=== PATIENT | female | born 1960 | race Caucasian/White ===

== ENCOUNTER → 2016-11-18 | Outpatient (CLI) | payer OTHER | END | disposition home or self-care (01) | LOC: RADMRIMAIN 14:37 | PROVIDERS: ATTEND Orthopaedic Surgery | DX: Z53.9 Procedure and treatment not carried out, unspecified reason (principal) ==

== ENCOUNTER → 2017-04-17 | Outpatient (CLI) | payer OTHER ==
[2017-04-17 15:32] LABS: Basophils # (A) 0.1 k/uL (0-0.2); Basophils % (A) 1 %; CH 29.4; CHCM 35.3; Eosinophils # (A) 0.2 k/uL (0-0.7); Eosinophils % (A) 3 %; HCT 43.2 % (34.0-46.0); HDW 3.17; HGB 14.9 gm/dL (11.4-16.0); Luc # (Auto) 0.08; Luc % (Auto) 1; Lymphocytes # (A) 2.2 k/uL (1.0-4.8); Lymphocytes % (A) 37 %; MCH 28.9 pg (25.0-35.0); MCHC 34.6 g/dL (31.0-37.0); MCV 83.6 fL (80.0-100.0); Mean Platelet Volume 7.8; Monocytes # (A) 0.2 k/uL (0-1.0); Monocytes % (A) 4 %; Neutrophils # (A) 3.1 k/uL (1.3-7.7); Neutrophils % (A) 54 %; RBC 5.17 m/uL (3.80-5.40); RDW 14.8 % (11.5-15.5); WBC 5.8 k/uL (3.8-10.6); WBC (Perox) 5.75
[2017-04-17 15:45] LABS: Potassium 4.5 mmol/L (3.5-5.1)
== END | disposition home or self-care (01) ==
LOC: LABPAT 15:04
PROVIDERS: ATTEND Orthopaedic Surgery
DX: Z01.812 Encounter for preprocedural laboratory examination (principal); M75.41 Impingement syndrome of right shoulder
CPT/HCPCS: 80051; 85025

== ENCOUNTER 2017-04-24 06:00 | Day surgery (SDC) | payer OTHER ==
[2017-04-22 14:56] VITALS: BMI 50.8
--- NOTE | 2017-04-23 15:58 | HP ---
HISTORY AND PHYSICAL Surgery scheduled for 04/24/2017. HISTORY AND PHYSICAL: Jami Rowe is a 56-year-old patient seen with progressive right shoulder pain. After treatment options were discussed, she elected to proceed with right shoulder arthroscopy. Consent was obtained. Medical clearance was provided by Dr. Dandre Valencia. PAST MEDICAL HISTORY: Is asthma. PAST SURGICAL HISTORY: Carpal tunnel release. Cholecystectomy, total knee arthroplasty. Laparoscopy. MEDICATIONS ARE: Tylenol as needed. ALLERGIES: ARE TO PENICILLIN. SOCIAL HISTORY: Patient denies tobacco use. PHYSICAL: Evaluation right shoulder flexion 140 degrees. Abduction 130 degrees. External rotation is 60 degrees. There is tenderness along the anterior lateral acromion rotator cuff impingement positive at 90 degrees. Distal neurovascular exam is intact. RADIOGRAPHS: Right shoulder reveal a type 2 anterior acromion, cystic changes of the greater tuberosity. An MRI of right shoulder revealed rotator revealed rotator cuff tendinitis. IMPRESSION: Right shoulder impingement with possible rotator cuff tear. PLAN: Right shoulder arthroscopy with subacromial decompression. Decompression possible arthroscopic rotator cuff repair and debridement. MMODL / IJN: [id number] /
[~2017-04-24 06:00] MED LIST: CLINDAMYCIN 900 MG in DEXTROSE 5% IN WATER 50 ML IVPB ONE; DEXAMETHASONE SOD PHOSPHATE 10 MG/ML 1 ML VIAL IV ONE; HYDROmorphone 1 MG/ML 1 ML SYRINGE IVP PRN; LACTATED RINGERS 1,000 ML IV SCH; LIDOCAINE 1% 20 ML VIAL (10MG/ML) FOR IV START INTRADERMA PRN; SCOPOLAMINE 1.5MG/72HR PATCH TRANSDERM ONE
[2017-04-24] MEDS: ONDANSETRON 4 MG/2 ML VIAL IVP ONE ×2 (06:53→09:32)
[2017-04-24] MEDS ORDERED: MIDAZOLAM 2 MG/2 ML VIAL IVP ONE ×2 (07:01→07:12)
[2017-04-24] MEDS ORDERED: fentaNYL (PF) 50 MCG/ML 2 ML AMP IVP ONE (07:03)
[2017-04-24] MEDS ORDERED: fentaNYL (PF) 50 MCG/ML 2 ML AMP ONE (07:25)
[2017-04-24] MEDS ORDERED: LIDOCAINE 2%-EPI 1:100,000 20 ML VIAL ONE (07:25)
[2017-04-24] MEDS ORDERED: PROPOFOL 10 MG/ML 20 ML VIAL IV ONE (07:25)
[2017-04-24] MEDS ORDERED: LIDOCAINE 1% INJ 10MG/ML (20 ML MDV) ONE (07:25)
[2017-04-24] MEDS ORDERED: SUCCINYLCHOLINE CHLORIDE 100 MG/5 ML SYR IV ONE (07:25)
[2017-04-24] MEDS ORDERED: ePHEDrine SULFATE/0.9% NACL/PF 50 MG/5 ML SYRINGE IV ONE (07:25)
[2017-04-24] MEDS ORDERED: ROPIVACAINE 5 MG/ML 30 ML VIAL ONE (07:25)
[2017-04-24 07:33] VITALS: RESP 16
[2017-04-24 09:06] VITALS: TEMP 97
--- NOTE | 2017-04-24 09:13 | P.OP ---
Date of Procedure: 04/24/17 Preoperative Diagnosis: Right shoulder impingement Postoperative Diagnosis: 1. Right shoulder impingement 2. Right shoulder partial rotator cuff tear 3. Right shoulder acromioclavicular joint osteoarthritis 4. Right shoulder partial long head biceps tendon tear 5. Right shoulder superficial superior/anterior labral tears Procedure(s) Performed: 1. Right shoulder arthroscopic subacromial decompression 2. Right shoulder arthroscopic debridement superficial rotator cuff tear 3. Right shoulder arthroscopic Alfreda procedure 4. Right shoulder arthroscopic biceps tenotomy 5. Right shoulder arthroscopic debridement labral tear Implants: None Anesthesia: GETA, regional (Shoulder block) Surgeon: Giovanni Marie Estimated Blood Loss (ml): 10 Pathology: none sent Condition: stable Disposition: PACU Indications for Procedure: 56-year-old patient seen with progressive right shoulder pain. After treatment options were discussed, she elected to proceed with arthroscopy. Operative Findings: see description of procedure Description of Procedure: Patient underwent a shoulder block by department of anesthesia. The patient was then taken to the operative suite. The patient underwent a general anesthetic by the department of anesthesia. The patient was placed into a lateral position and secured. There was appropriate padding of the bony prominence. Right shoulder was then prepped and draped in normal sterile orthopedic fashion. We placed the extremity in 10 pounds of longitudinal traction. A posterior incision was now made for a posterior working portal site. The trocar and cannula were inserted into the glenohumeral joint. Arthroscopy was initiated. Spinal needle was now inserted anteriorly, to ascertain the anterior working portal site. An incision was now made in that area, a trocar was inserted followed by a probe. There was superficial tearing of the superior and anterior labrum. There were some grade 1 chondral moist changes of the glenoid anteriorly. There was partial tearing long head biceps tendon. I performed an arthroscopic biceps tenotomy. I debrided the labral tears down to stable tissue. The residual labrum was found to be stable. Instruments were now removed from the glenohumeral joint. Utilizing the posterior working portal site, the trocar and cannula were inserted into the subacromial space. Arthroscopy initiated. I made an incision 2 fingerbreadths lateral to the acromion. I introduced my trocar followed by my ArthroCare ablator. I now began ablating thick subacromial bursal tissue, which exposed the undersurface of the anterior acromion. This was diminished subacromial space. There was a very prominent anterior acromion. A motorized bur was introduced and a subacromial decompression was performed. I also excised some osteophytes off the inferior aspect of the distal clavicle. The AC joint was visualized and noted to be fairly arthritic. Our motorized bur was introduced in the anterior portal site and a Alfreda procedure was performed without difficulty, decompressing the AC joint nicely. I turned my attention to the rotator cuff. There was some superficial tearing along the distal supraspinatus area. I used a motorized shaver and debrided that down to stable tissue. The residual tendon was probed and found to be stable with no obvious through and through tears or perforation. I injected that area with 1 mL Allogen. Instruments now removed from the portal sites. All portal sites were approximated with nylon suture. Sterile dressings were applied followed by a shoulder immobilizer. The patient was awakened, transferred to a bed, and taken to recovery in stable condition.
[2017-04-24] MEDS ORDERED: PROMETHAZINE INJ 25 MG/ML 1 ML VIAL IVPB ONE (09:49)
[2017-04-24 12:24] VITALS: BP 153/92; PULSE 93
== END 2017-04-24 13:41 | disposition home or self-care (01) ==
LOC: OR 06:00
PROVIDERS: ATTEND Orthopaedic Surgery
DX: M25.811 Other specified joint disorders, right shoulder (principal); M75.111 Incomplete rotator cuff tear or rupture of right shoulder, not specified as traumatic; M25.711 Osteophyte, right shoulder; M94.211 Chondromalacia, right shoulder; M19.011 Primary osteoarthritis, right shoulder; J45.909 Unspecified asthma, uncomplicated; Z88.0 Allergy status to penicillin; I49.9 Cardiac arrhythmia, unspecified
CPT/HCPCS: 29824; 29826; 29827; C1765; J2250; J1100; J2550; J2405; J2001; J3010; J2795; J0330; J2704

== ENCOUNTER 2018-09-09 11:52 | Day surgery (SDC) | payer OTHER ==
[2018-09-07 16:50] VITALS: BMI 50.8
[~2018-09-09 11:52] MED LIST changes: -CLINDAMYCIN 900 MG in DEXTROSE 5% IN WATER 50 ML IVPB ONE; +HYDROmorphone 0.5 MG/0.5 ML SYRINGE IVP PRN; -HYDROmorphone 1 MG/ML 1 ML SYRINGE IVP PRN; -LIDOCAINE 1% 20 ML VIAL (10MG/ML) FOR IV START INTRADERMA PRN; +MIDAZOLAM 2 MG/2 ML VIAL IV PRN; +Pre Op ABX Message 1 EACH MISC MISCELLANE ONE
[2018-09-09] MEDS: ONDANSETRON 4 MG/2 ML VIAL IVP ONE ×2 (12:38→15:49)
[2018-09-09] MEDS ORDERED: LIDOCAINE 1% INJ 10MG/ML (20 ML MDV) ONE (12:39)
[2018-09-09] MEDS ORDERED: PROPOFOL 10 MG/ML 20 ML VIAL IV ONE (12:39)
[2018-09-09] MEDS ORDERED: GLYCOPYRROLATE 0.2 MG/ML 2 ML VIAL ONE (12:39)
[2018-09-09] MEDS ORDERED: ePHEDrine SULFATE/0.9% NACL/PF 50 MG/5 ML SYRINGE IV ONE (12:39)
[2018-09-09] MEDS ORDERED: SUCCINYLCHOLINE CHLORIDE 100 MG/5 ML SYR IV ONE (12:39)
[2018-09-09] MEDS ORDERED: fentaNYL (PF) 50 MCG/ML 2 ML AMP ONE (12:39)
[2018-09-09] MEDS ORDERED: BUPIVACAINE (PF) 0.25% 30 ML VIAL SQ ONE ×2 (13:34→14:02)
[2018-09-09] MEDS ORDERED: LACTATED RINGERS 1,000 ML IV ONE (14:18)
--- NOTE | 2018-09-09 14:30 | P.OP ---
Date of Procedure: 09/09/18 Preoperative Diagnosis: Hallux abductovalgus deformity left foot and hypertrophy 5 bone fifth digit left foot Postoperative Diagnosis: Same Procedure(s) Performed: 1. Elio Carlos bunionectomy left foot 2. Partial phalangectomy fifth digit left foot Anesthesia: STONEA Surgeon: Paresh Whaley Indications for Procedure: Painful bunion deformity left foot pain with ambulation and use of enclosed shoe gear Description of Procedure: On the date of surgery the patient was taken to the operating room in good condition placed on the operating table in a supine position where general anesthetic agents were utilized patient's left foot and ankle were then prepped and draped in the usual aseptic manner. Over heavy web roll padding an ankle tourniquet had been placed above the malleoli of the patient's left ankle. Line the patient's left foot and ankle were then elevated and exsanguinated of blood and after approximately 2 minutes. A time the ankle tourniquet to the patient's left ankle was inflated to approximately 250 mmHg At this point in time attention was directed to the dorsal aspect of the first metatarsal phalangeal joint of the left foot where an approximately centimeters dorsal linear incision was made. The incision was deepened via sharp dissection down through the level of the subcutaneous tissue layers all neurovascular structures encountered were identified isolated and were retracted and any bleeding vessels were clamped electrocauterized. Dissection was then carried deep down to level PERIOSTEAL STRUCTURES OVERLYING THE FIRST METATARSAL PHALANGEAL JOINT THESE WERE INCISED UTILIZING AN INVERTED L INCISION AND PAROSTEAL STRUCTURES WERE UNDERSCORED AND RETRACTED FROM THE UNDERLYING BONE HYPEROSTOSIS PRESENT ON THE MEDIAL SIDE OF THE FIRST METATARSAL HEAD WAS RESECTED FLUSH IN LINE WITH THE SHAFT OF THE FIRST METATARSAL UTILIZING OSCILLATING BONE SAW. A TRANSVERSE V METATARSAL OSTEOTOMY WAS THEN PERFORMED AT THE METAPHYSIS LEVEL OF THE FIRST METATARSAL WAS A THROUGH AND THROUGH MEDIAL TO LATERAL OSTEOTOMY AND UPON COMPLETION OF THE OSTEOTOMY WHICH MEASURED APPROXIMATELY 60 CAPITAL FRAGMENT WAS DISPLACED LATERALLY BY APPROXIMATELY 5 MM AND IMPACTED BACK UPON THE SPIKE CREATED BY THE OSTEOTOMY. 2 CROSSING 0.062 K WIRES WERE THEN USED TO FIXATE THE OSTEOTOMY THE WEDGE WAS DIRECTED TO THE LATERAL SIDE OF THE FIRST METATARSAL PHALANGEAL JOINT WHERE DISSECTION WAS CARRIED DEEP DOWN TO THE FIBULAR SESAMOID AREA AND A LATERAL CAPSULOTOMY WAS PERFORMED. THIS POINT IN TIME ATTENTION WAS DIRECTED TO THE AREA JUST DISTAL TO THE METATARSAL PHALANGEAL JOINT WHERE SOME PAROSTEAL STRUCTURES WERE UNDERSCORED AND RETRACTED FROM THE UNDERLYING BONE FROM THE PROXIMAL PHALANX AND UTILIZING OSCILLATING BONE SAW A WEDGE OSTEOTOMY WAS PERFORMED THIS WAS PERFORMED IN SUCH A MANNER THAT THE APEX WAS DIRECTED laterally and the base was directed medially upon completion of this through and through dorsal to plantar osteotomy was removed in total from the surgical site. I applying a pressure on the lateral side of the hallux and a medial direction the osteotomy was seen to closed down upon and maintain the hallux in a rectus position. 045 K wire was used to fixate this osteotomy. Redundant capsule on the medial side of the first metatarsal head was then resected some parosteal structures then coaptated and maintained utilizing 2-0 Vicryl simple interrupted suture subcutaneous tissue layers were coaptated and maintained utilizing 3-0 Vicryl simple interrupted suture and the skin was closed utilizing 4-0 nylon simple interrupted suture 's point in time attention was directed to the fifth digit left foot where an approximately point centimeter vision was made overlying the medial side of the distal interphalangeal joint sister was carried deep down to the level of the Parosteal Structures on the Medial Side of This Joint and Utilizing Rotary Bur a Periostosis Present on the Medial Side of the Distal Interphalangeal Joint Was Craterized Site Was Flushed with Copious Amounts Sterile Saline Solution Skin Edges Were Coaptated and Maintained Utilizing 4-0 Nylon Simple Interrupted Suture Adaptic Applied to Both Incision Sites Kerlix Fluffs Soaked in Betadine Four-Inch Conformer and 4 Inch Coban Was Used To Form a Compression Dressing Tourniquet to the Patient's Left Ankle Was Deflated and Adequate Hemostatic Return Was Seen in All Digits of the Left Foot Specifically the Hallux and the Fifth Digit. The Patient Tolerated the Surgeries and Anesthesia Well Was Taken to Recovery Room in Good Postoperative Condition.
--- NOTE | 2018-09-09 14:30 | P.PCN ---
Date of Procedure: 09/09/18 Preoperative Diagnosis: 1. Hallux abductovalgus deformity left foot 2. Hypertrophied bone causing soft corn fifth digit left foot Postoperative Diagnosis: Same Procedure(s) Performed: 1. Elio Carlos bunionectomy with K wire fixation left foot and 2. Partial phalangectomy fifth digit left foot Anesthesia: CARLINE Surgeon: Paresh Whaley Operative Findings: Prior to on postoperative dressings 14 mL of 0.25% plain Marcaine was used to block the surgical sites for postoperative pain control.
[2018-09-09 14:46] VITALS: RESP 16; TEMP 98.3
[2018-09-09 16:35] VITALS: BP 122/78; PULSE 75
== END 2018-09-09 17:11 | disposition home or self-care (01) ==
LOC: OR 11:52
PROVIDERS: ATTEND Podiatrist Foot & Ankle Surgery
DX: M20.12 Hallux valgus (acquired), left foot (principal); M89.372 Hypertrophy of bone, left ankle and foot; L84 Corns and callosities; J45.909 Unspecified asthma, uncomplicated; M19.90 Unspecified osteoarthritis, unspecified site; Z79.899 Other long term (current) drug therapy; Z88.0 Allergy status to penicillin; Z91.040 Latex allergy status; Z96.659 Presence of unspecified artificial knee joint
CPT/HCPCS: 88304; 88311; 28299; 28124; C1713 ×2; J2250; J1100; J2405; J2001; J3010; J0330; J2704

== ENCOUNTER → 2021-02-27 | Outpatient (CLI) | payer OTHER ==
--- NOTE | 2021-02-28 11:07 | MM ---
Reason for exam: screening (asymptomatic). Last mammogram was performed 5 years and 7 months ago. History: Patient is postmenopausal and had first child at age 31. Physical Findings: A clinical breast exam by your physician is recommended on an annual basis and results should be correlated with mammographic findings. MG Screening Mammo w CAD Bilateral CC and MLO view(s) were taken. Prior study comparison: July 19, 2015, bilateral MG screening mammo w CAD. May 12, 2013, bilateral digital screening mammo w/CAD. There are scattered fibroglandular densities. There is no discrete abnormality. No significant changes when compared with prior studies. ASSESSMENT: Negative, BI-RAD 1 RECOMMENDATION: Routine screening mammogram of both breasts in 1 year.
== END | disposition home or self-care (01) ==
LOC: RADMAMWWP 15:50
PROVIDERS: ATTEND Family Medicine
DX: Z12.31 Encounter for screening mammogram for malignant neoplasm of breast (principal); Z78.0 Asymptomatic menopausal state
CPT/HCPCS: 77067

== ENCOUNTER → 2021-11-02 | Outpatient (CLI) | payer OTHER ==
--- NOTE | 2021-11-04 20:31 | XR ---
EXAMINATION TYPE: XR chest 2V DATE OF EXAM: 11/02/2021 COMPARISON: 02/10/2022 INDICATION: Asthma TECHNIQUE: Frontal and lateral views of the chest are obtained. FINDINGS: The heart size is normal. The pulmonary vasculature is normal. The lungs are clear. IMPRESSION: 1. No acute pulmonary process.
== END | disposition home or self-care (01) ==
LOC: RADXRMAIN 16:28
PROVIDERS: ATTEND Family Medicine
DX: J45.909 Unspecified asthma, uncomplicated (principal)
CPT/HCPCS: 71046